=== PATIENT | female | born 2000 | race Caucasian/White ===

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

== ENCOUNTER 2018-11-07 22:26 | Emergency (ER) | payer OTHER ==
[~2018-11-07] VITALS: Ht 165.1 cm; Wt 91.6 kg
[2018-11-07 22:33] VITALS: Ht 165.1 cm; Wt 91.6 kg
[2018-11-08 01:40] VITALS: BP 112/60
== END 2018-11-08 01:40 | disposition home or self-care (01) ==
LOC: ED 22:26
DX: T78.3XXA Angioneurotic edema, initial encounter (principal); Y92.89 Other specified places as the place of occurrence of the external cause
CPT/HCPCS: J0171; J1100; Q0163

== ENCOUNTER 2019-10-18 23:33 | Emergency (ER) | payer MEDICAID, SELFPAY ==
[~2019-10-18] VITALS: Ht 165.1 cm; Wt 86.2 kg
[2019-10-18 23:48] VITALS: Ht 165.1 cm; Wt 86.2 kg
[2019-10-19 01:58] VITALS: BP 120/84
== END 2019-10-19 01:58 | disposition home or self-care (01) ==
LOC: ED 23:33
DX: R07.89 Other chest pain (principal); Z20.828 Contact with and (suspected) exposure to other viral communicable diseases
CPT/HCPCS: Q0092; U0003-CS